=== PATIENT | male | born 1970 | race Two or more races ===

== ENCOUNTER 2022-09-17 05:14 | Emergency (ER) | payer OTHER ==
[~2022-09-17] VITALS: Ht 175.3 cm; Wt 73.9 kg
[2022-09-17] MEDS ORDERED: TUSSI PRES-B L480 ML PO (10:36)
[2022-09-17] MEDS ORDERED: ZITHROMAX TRI-500 MG PO (10:36)
== END 2022-09-17 10:44 | disposition home or self-care (01) ==
LOC: ER 05:14
DX: R05.9 Cough, unspecified (principal); M19.90 Unspecified osteoarthritis, unspecified site; Z91.041 Radiographic dye allergy status; Z20.822 Contact with and (suspected) exposure to COVID-19